=== PATIENT | female | born 1970 ===

== ENCOUNTER 2018-08-03 08:06 | Emergency (ER) | payer MEDICAID, OTHER ==
[2018-08-03 08:17] VITALS: TEMP 98.3
--- NOTE | 2018-08-03 09:11 | ED PDOC ---
HPI: Influenza Time Seen by Provider: 08/03/18 08:17 Chief Complaint: Cough, Cold, Congestion Chief Complaint (Provider): Cough History Per: Patient Exam Limitations: no limitations Onset/Duration Of Symptoms: Days (2 months) Additional complaint(s):: Pt. with cough, runny nose, nasal congestion, dark phlegm. Has pain to the chest and back on coughing excessively. No pain at rest. Seen by pcp and given cough syrup. No weakness, headaches, dizziness, dyspnea. Fever 2 days ago, gone now. No abd pain, nausea, vomit. Past Medical History Reviewed: Nursing Documentation, Vital Signs Vital Signs: Last Vital Signs Temp 98.3 F 08/03/18 08:14 Pulse 76 08/03/18 08:14 Resp 20 08/03/18 08:14 BP 157/87 H 08/03/18 08:14 Pulse Ox 98 08/03/18 08:14 - Medical History PMH: Diabetes, HTN, Hypothyroidism Denies: Chronic Kidney Disease Other PMH: thyroid do - Surgical History Surgical History: - Family History Family History: States: Unknown Family Hx - Home Medications Home Medications: Ambulatory Orders Medication Instructions Recorded Hydrocodone/Acetaminophen [Vicodin 1 each PO Q6 PRN #10 tablet 02/12/16 5-300 mg Tablet] Meloxicam 7.5 mg PO BID PRN #14 tablet 02/12/16 Enalapril Maleate [Vasotec] 10 mg PO DAILY #30 tab 10/06/16 Naproxen [Naprosyn] 500 mg PO Q12H #20 tab 10/06/16 Azithromycin [Zithromax] 250 mg PO DAILY 5 Days tab 08/03/18 Benzonatate [Tessalon Perles] 100 mg PO BID PRN 5 Days sgl 08/03/18 - Allergies Allergies/Adverse Reactions: Allergies Allergy/AdvReac Type Severity Reaction Status Date / Time No Known Allergies Allergy Verified 02/12/16 13:30 Review of Systems ROS Statement: Except As Marked, All Systems Reviewed And Found Negative Constitutional: Positive for: Fever ENT: Positive for: Nose Congestion Cardiovascular: Positive for: Chest Pain Respiratory: Positive for: Cough, Sputum Physical Exam - Reviewed Nursing Documentation Reviewed: Yes Vital Signs Reviewed: Yes - Physical Exam Appears: Positive for: Non-toxic, No Acute Distress Head Exam: Positive for: ATRAUMATIC, NORMAL INSPECTION, NORMOCEPHALIC Skin: Positive for: Normal Color, Warm, DRY Eye Exam: Positive for: EOMI, Normal appearance, PERRL ENT: Positive for: Nasal Congestion Neck: Positive for: Normal, Painless ROM, Supple Cardiovascular/Chest: Positive for: Regular Rate, Rhythm. Negative for: Chest Non Tender (mild sternal) Respiratory: Positive for: Normal Breath Sounds. Negative for: Accessory Muscle Use, Wheezing Gastrointestinal/Abdominal: Positive for: Normal Exam, Soft. Negative for: Tenderness Back: Positive for: Normal Inspection. Negative for: L CVA Tenderness, R CVA Tenderness Extremity: Positive for: Normal ROM. Negative for: Tenderness, Pedal Edema Neurologic/Psych: Positive for: Alert, Oriented - ECG O2 Sat by Pulse Oximetry: 98 Pulse Ox Interpretation: Normal - Radiology X-Ray: Read By Radiologist X-Ray Interpretation: No Acute Disease - Progress ED Course And Treament: 1051: Stable. AAOx3. FU with pcp. Will rx antibiotics considering hx and time frame. Disposition - Clinical Impression Clinical Impression: URI (upper respiratory infection) - Patient ED Disposition Is Patient to be Admitted: No Counseled Patient/Family Regarding: Studies Performed, Diagnosis, Need For Followup, Rx Given - Disposition Referrals: [facility] [Outside] - 08/04/18 Disposition: Routine/Home Disposition Time: 10:12 Condition: STABLE Additional Instructions: Return if not better in 3 days. Prescriptions: Azithromycin [Zithromax] 250 mg PO DAILY 5 Days tab Benzonatate [Tessalon Perles] 100 mg PO BID PRN 5 Days sgl PRN Reason: Cough Instructions: Cough, Adult (DC) Forms: [facility] ([place]), [facility] ED School/Work Excuse
--- NOTE | 2018-08-03 09:56 | RAD ---
Date of service: 08/03/2018 HISTORY: dyspnea COMPARISON: 10/06/2016 TECHNIQUE: Chest PA and lateral FINDINGS: LUNGS: No active pulmonary disease. PLEURA: No significant pleural effusion identified. No pneumothorax apparent. CARDIOVASCULAR: No aortic atherosclerotic calcification present OSSEOUS STRUCTURES: No significant abnormalities. VISUALIZED UPPER ABDOMEN: Normal. OTHER FINDINGS: None. IMPRESSION: No active disease.
[2018-08-03 11:17] VITALS: BP 137/85; PULSE 94; RESP 16; O2SAT 96
== END 2018-08-03 11:17 | disposition home or self-care (01) ==
LOC: H.ER 08:06
DX: J06.9 Acute upper respiratory infection, unspecified (principal); E03.9 Hypothyroidism, unspecified; E11.9 Type 2 diabetes mellitus without complications; I10 Essential (primary) hypertension